=== PATIENT | female | born 1990 | race Caucasian/White ===

== ENCOUNTER 2017-10-05 19:20 | Emergency (ER) | payer SELFPAY ==
[~2017-10-05] VITALS: Ht 165.1 cm; Wt 72.6 kg
[~2017-10-05 19:20] MED LIST: (None)20 M1 PO; ALBU90OI INH; ALBU90OI61 INH; AMIT10 PO; AMOX500 PO; BENZ100A PO; CYCL10 PO; DOXY100 PO; Epipen0.3 MG/0.3 IM; HYDACE5 PO; HYDHCL25 PO; HYDR1TAB94 PO; IBUP400 PO; IBUP600 PO; NAPR500 PO; Norco 5-325 Ta1 EACH PO; PRED10 PO; PROCODE120 PO; Percocet 5-3251 EACH PO; Prednisone20 MG PO; SULTRIDS PO; Ultram50 MG PO; Veetids 500500 MG PO; Ventolin/Prove6.7 GM INH; Zithromax250 MG PO
[2017-10-05 20:11] LABS: Influenza A Negative (NEGATIVE); Influenza B Negative (NEGATIVE)
== END 2017-10-05 20:38 | disposition home or self-care (01) ==
LOC: ER 19:20
PROVIDERS: Physician Assistant
DX: J06.9 Acute upper respiratory infection, unspecified (principal); F17.200 Nicotine dependence, unspecified, uncomplicated
CPT/HCPCS: 87081; 87430; 87804; 96372; 99283; J1100; J1885

== ENCOUNTER 2018-10-14 17:17 | Emergency (ER) | payer OTHER ==
[~2018-10-14] VITALS: Ht 162.6 cm; Wt 70.3 kg
== END 2018-10-14 19:08 | disposition home or self-care (01) ==
LOC: ER 17:17
DX: S61.012A Laceration without foreign body of left thumb without damage to nail, initial encounter (principal); F17.200 Nicotine dependence, unspecified, uncomplicated; W26.0XXA Contact with knife, initial encounter
CPT/HCPCS: 12001; 99282-25

== ENCOUNTER 2019-03-27 08:28 | Emergency (ER) | payer OTHER ==
[~2019-03-27] VITALS: Ht 162.6 cm; Wt 81.7 kg
[2019-03-27] MEDS ORDERED: Amoxicillin875 MG PO (09:34)
[2019-03-27] MEDS ORDERED: Robaxin-750750 MG PO (09:34)
== END 2019-03-27 10:10 | disposition home or self-care (01) ==
LOC: ER 08:28
DX: S46.912A Strain of unspecified muscle, fascia and tendon at shoulder and upper arm level, left arm, initial encounter (principal); J02.0 Streptococcal pharyngitis; Z87.891 Personal history of nicotine dependence; X58.XXXA Exposure to other specified factors, initial encounter
CPT/HCPCS: 87430; 99283; J1100

== ENCOUNTER 2023-07-14 20:29 | Emergency (ER) | payer BC ==
[~2023-07-14] VITALS: Ht 160 cm; Wt 77.1 kg
[~2023-07-14 20:29] MED LIST changes: +Amoxicillin875 MG PO; +Robaxin-750750 MG PO
[2023-07-14 20:45] VITALS: BP 158/93
[2023-07-14] MEDS ORDERED: Ritalin10 MG PO (20:51)
== END 2023-07-14 21:36 | disposition home or self-care (01) ==
LOC: ER 20:29
DX: F41.1 Generalized anxiety disorder (principal); F17.210 Nicotine dependence, cigarettes, uncomplicated
CPT/HCPCS: 99282; A9270

== ENCOUNTER → 2024-05-12 | Outpatient (CLI) | payer BC ==
[~2024-05-12] MED LIST changes: +Methocarbamol750 MG PO; +Ritalin10 MG PO
== END | disposition home or self-care (01) ==
LOC: LAB SHORT 07:47 → LAB 07:47
DX: D22.61 Melanocytic nevi of right upper limb, including shoulder (principal)
CPT/HCPCS: 88305

== ENCOUNTER 2024-05-16 05:38 | Emergency (ER) | payer BC ==
[~2024-05-16] VITALS: Ht 162.6 cm; Wt 64.4 kg
[~2024-05-16 05:38] MED LIST changes: -Methocarbamol750 MG PO
[2024-05-16] MEDS ORDERED: Methyl Salicylate/Menth/Camph 57 GM TUBE TOP ONE (06:35)
[2024-05-16] MEDS ORDERED: Methocarbamol 500 MG Tab PO ONE (06:35)
[2024-05-16] MEDS ORDERED: Ketorolac Tromethamine 15mg Vial IM ONE (06:35)
[2024-05-16 06:38] VITALS: BP 126/94
[2024-05-16] MEDS ORDERED: Acetaminophen 500 MG Tab PO ONE (06:45)
[2024-05-16] MEDS ORDERED: Methocarbamol750 MG PO (07:32)
== END 2024-05-16 07:37 | disposition home or self-care (01) ==
LOC: ER 05:38
DX: M54.6 Pain in thoracic spine (principal); Z87.891 Personal history of nicotine dependence
CPT/HCPCS: 71101; 96372; 99283-25; A9270; J1885

== ENCOUNTER 2024-10-22 04:43 | Day surgery (SDC) | payer BC ==
[~2024-10-22 04:43] MED LIST changes: +Methocarbamol750 MG PO
[2024-10-22] MEDS ORDERED: Cosyntropin 0.25 MG / ML 1ML Vial IV SCH (07:20)
[2024-10-22 09:41] VITALS: BP 136/91
[2024-10-22] MEDS ORDERED: LAMO100 PO (09:44)
[2024-10-22] MEDS ORDERED: LORA.5 PO (09:45)
[2024-10-22] MEDS ORDERED: ZOLP10 PO (09:45)
[2024-10-22] MEDS ORDERED: HYDHCL25 PO (09:46)
== END 2024-10-22 11:07 | disposition home or self-care (01) ==
LOC: ATC 04:43
DX: R94.7 Abnormal results of other endocrine function studies (principal); F31.81 Bipolar II disorder; F41.1 Generalized anxiety disorder; F41.0 Panic disorder [episodic paroxysmal anxiety]; F90.0 Attention-deficit hyperactivity disorder, predominantly inattentive type; F51.04 Psychophysiologic insomnia; F17.290 Nicotine dependence, other tobacco product, uncomplicated; Z79.899 Other long term (current) drug therapy; Z91.048 Other nonmedicinal substance allergy status
CPT/HCPCS: 80400; 82533; 96374; J0834

== ENCOUNTER → 2025-08-05 | Outpatient (CLI) | payer BC ==
[~2025-08-05] MED LIST changes: +LAMO100 PO; +LORA.5 PO; +ZOLP10 PO
== END ==
LOC: LAB 13:28 → LAB SHORT 13:28
DX: J02.9 Acute pharyngitis, unspecified (principal)
CPT/HCPCS: 87081